=== PATIENT | male | born 1965 | race Caucasian/White ===

== ENCOUNTER 2023-02-07 09:40 | Outpatient (CLI) | payer OTHER ==
[2023-02-07 14:41] LABS: BASOPHILS # (AUTO) 0.1 10^3/uL (0.0-0.1); BASOPHILS % (AUTO) 0.6 %; EOSINOPHILS # (AUTO) 0.1 10^3/uL (0.0-0.7); EOSINOPHILS % (AUTO) 0.9 %; HCT - HEMATOCRIT 38.5 % (42.0-52.0); HGB - HEMOGLOBIN 12.6 g/dL (14.0-18.0); LYMPHOCYTES # (AUTO) 1.6 10^3/uL (1.5-3.5); MEAN CORPUSCULAR HEMOGLOBIN 29.2 pg (27.0-31.0); MEAN CORPUSCULAR HGB CONC 32.7 g/dL (32.0-36.0); MEAN CORPUSCULAR VOLUME 89.1 fL (80.0-94.0); MEAN PLATELET VOLUME 9.4 fL (7.4-11.4); MONOCYTES # (AUTO) 0.8 10^3/uL (0.0-1.0); MONOCYTES % (AUTO) 9.1 %; NEUTROPHILS # (AUTO) 6.5 10^3/uL (1.5-6.6); NEUTROPHILS % (AUTO) 71.1 %; PLT - PLATELET COUNT 330 10^3/uL (130-450); RED BLOOD COUNT 4.32 10^6/uL (4.70-6.10); RED CELL DISTRIBUTION WIDTH 12.8 % (12.0-15.0); WHITE BLOOD COUNT 9.1 x10^3/uL (4.8-10.8)
--- NOTE | 2023-02-07 15:17 | XRAY Report ---
PROCEDURE: Lumbar Spine 2 View INDICATIONS: CHRONIC BACK PAIN TECHNIQUE: 2 views of the lumbar spine were acquired. COMPARISON: None. FINDINGS: Bones: 5 [id number] vertebrae are present. There is 4 mm anterolisthesis of L4 on L5. There is also 6 mm retrolisthesis of L1 on L2 and L2 on L3. Mild degenerative endplate changes are noted thro ughout lumbar spine. No vertebral body compression fractures. No suspicious bony lesions. Soft tissues: Overlying bowel gas pattern is normal. No suspicious soft tissue calcifications. IMPRESSION: Mild degenerative disc disease throughout lumbar spine. No acute compression fracture. L ikely degenerative spondylolisthesis at L1-2, L2-3 and L4-5 levels as above. Reviewed by: Fadi Altamirano MD on 02/07/2023 3:16 PM PDT Approved by: Fadi Altamirano MD on 02/07/2023 3:16 PM PDT Station ID: [id number]
--- NOTE | 2023-02-07 15:18 | XRAY Report ---
PROCEDURE: Thoracic Spine 3 View INDICATIONS: CHRONIC BACK PAIN TECHNIQUE: 3 views of the thoracic spine were acquired. COMPARISON: None. FINDINGS: Bones: No fractures or dislocations. There is mild kyphosis with apex at T5-6 level. Degenerative e ndplate changes and loss of disc height throughout mid to lower thoracic spine is seen. No suspicious bony lesions. 12 pairs of ribs are noted, and appear intact where visualized. Soft tissues: No paravertebral stripe thickening. IMPRESSION: No acute fracture or dislocation. Mild kyphosis and mild degenerative disc disease in mid to lower th oracic spine as above. Reviewed by: Fadi Altamirano MD on 02/07/2023 3:17 PM PDT Approved by: Fadi Altamirano MD on 02/07/2023 3:17 PM PDT Station ID: [id number]
[2023-02-07 15:20] LABS: ALBUMIN 4.3 g/dL (3.2-5.5); ALBUMIN/GLOBULIN RATIO 1.1 (1.0-2.2); ALKALINE PHOSPHATASE 76 IU/L (42-121); ALT ALANINE AMINOTRANSFERASE 18 IU/L (10-60); AST ASPARTATE AMINOTRANSFERASE 25 IU/L (10-42); BILIRUBIN,TOTAL 0.9 mg/dL (0.2-1.0); BUN - BLOOD UREA NITROGEN 14 mg/dL (6-20); CALCIUM 9.4 mg/dL (8.5-10.3); CARBON DIOXIDE - CO2 28 mmol/L (21-32); CHLORIDE 99 mmol/L (101-111); CHOL/HDL RATIO 2.6 (<5.0); CHOLESTEROL 193 mg/dL; CREATININE 0.9 mg/dL (0.6-1.2); GFR - MDRD 87 (>89); GLUCOSE 96 mg/dL (70-100); HDL CHOLESTEROL 74 mg/dL; LDL CHOLESTEROL,CALCULATED 105 mg/dL; LDL/HDL RATIO 1.4 (<3.6); POTASSIUM 4.2 mmol/L (3.5-5.0); SODIUM 132 mmol/L (135-145); TOTAL PROTEIN 8.2 g/dL (6.7-8.2); TRIGLYCERIDES 68 mg/dL; VLDL CHOLESTEROL 14 mg/dL
== END 2023-02-07 09:41 | disposition home or self-care (01) ==
LOC: DI.S 09:40
PROVIDERS: ATTEND Nurse Practitioner Acute Care
DX: M54.9 Dorsalgia, unspecified (principal); G89.29 Other chronic pain; M51.34 Other intervertebral disc degeneration, thoracic region; M51.36 Other intervertebral disc degeneration, lumbar region; M43.16 Spondylolisthesis, lumbar region; Z12.5 Encounter for screening for malignant neoplasm of prostate; Z13.228 Encounter for screening for other metabolic disorders; Z13.220 Encounter for screening for lipoid disorders; Z13.29 Encounter for screening for other suspected endocrine disorder; Z13.0 Encounter for screening for diseases of the blood and blood-forming organs and certain disorders involving the immune mechanism
CPT/HCPCS: 36415; 80053; 80061; 83721; 84153; 84443; 85025

== ENCOUNTER 2023-02-12 08:51 | Outpatient (CLI) | payer OTHER ==
[2023-02-12 14:41] LABS: ABSOLUTE RETICS # AUTO 0.049 10^6/uL (0.020-0.110); RED BLOOD COUNT 4.22 10^6/uL (4.70-6.10); RETICULOCYTE COUNT % (AUTO) 1.15 % (0.5-2.3)
[2023-02-12 15:54] LABS: FERRITIN 50.1 ng/mL (23.9-336.2)
[2023-02-12 16:01] LABS: % IRON SATURATION 24 % (20-50); IRON 80 ug/dL (45-182); TOTAL IRON BINDING CAPACITY 328 ug/dL (250-450); TRANSFERRIN 234 mg/dL (180-329)
== END 2023-02-12 08:52 | disposition home or self-care (01) ==
LOC: LAB.S 08:51
PROVIDERS: ATTEND Nurse Practitioner Acute Care
DX: D64.9 Anemia, unspecified (principal)
CPT/HCPCS: 36415; 82607; 82728; 82746; 83540; 84466; 85045

== ENCOUNTER 2023-04-25 08:00 | Outpatient (CLI) | payer OTHER ==
[2023-04-25 20:01] LABS: FECAL OCCULT BLOOD (FIT) NEGATIVE (NEGATIVE)
== END 2023-04-25 23:59 | disposition home or self-care (01) ==
LOC: LAB 08:00
PROVIDERS: ATTEND Nurse Practitioner Acute Care
DX: D64.9 Anemia, unspecified (principal)
CPT/HCPCS: 82274

== ENCOUNTER 2023-11-10 20:49 | Emergency (ER) | payer OTHER ==
[2023-11-10 21:07] VITALS: BP 141/80; O2SAT 100
--- NOTE | 2023-11-10 22:17 | ED Physician Documentation ---
PD HPI BACK PAIN - Stated complaint Stated Complaint: FALL - Chief complaint Chief Complaint: Trauma Ch/Bk - History obtained from History obtained from: Patient - Additional information Additional information: Patient is a 58-year-old male with no significant past medical history presenting for evaluation of back pain after slip and fall. Patient states he was going upstairs with pizza and water in his hands and needed to go back downstairs and slipped as he had socks on. He struck his back against a stair and believes he slid down approximately 4 steps. No head injury. Denies LOC. Does not take a blood thinner. He also reports hitting his elbows but pain is primarily to the low back. He did take anti-inflammatories prior to arrival. No radiation to the pain. Denies saddle anesthesia. No numbness or weakness in legs. Denies incontinence. Review of Systems Constitutional: denies: Fever Cardiac: denies: Chest pain / pressure Respiratory: denies: Dyspnea GI: denies: Abdominal Pain Musculoskeletal: reports: Back pain PD PAST MEDICAL HISTORY - Past Medical History Past Medical History: Yes Psych: Depression - Past Surgical History Past Surgical History: Yes - Present Medications Home Medications: Ambulatory Orders Medication Instructions Recorded Confirmed buPROPion [Wellbutrin Xl] 150 mg PO DAILY 06/18/23 11/10/23 busPIRone [Buspar] 10 mg PO TID 06/18/23 11/10/23 Cyclobenzaprine [Flexeril] 10 mg PO TID PRN #20 tablet 11/10/23 Lidocaine [Lidoderm] 1 each TP DAILY PRN #10 patch 11/10/23 - Allergies Allergies/Adverse Reactions: Allergies Allergy/AdvReac Type Severity Reaction Status Date / Time No Known Drug Allergies Allergy Verified 11/10/23 20:56 - Social History Does the pt smoke?: No Smoking Status: Former smoker Does the pt drink ETOH?: Yes Does the pt have substance abuse?: No - Immunizations Immunizations are current?: Yes PD ED PE NORMAL - General General: Alert and oriented X 3, No acute distress, Well developed/nourished - HEENT HEENT: Atraumatic, Moist mucous membranes, Pharynx benign - Neck Neck: Supple, no meningeal sign, No bony TTP - Cardiac Cardiac: RRR, Strong equal pulses - Respiratory Respiratory: No respiratory distress, Clear bilaterally - Abdomen Abdomen: Normal bowel sounds, Soft, Non tender, Non distended - Back Back: No spinal TTP - Derm Derm: Warm and dry - Extremities Extremities: Other (Small abrasion to right elbow, normal range of motion of both elbows) - Neuro Neuro: Alert and oriented X 3, Normal speech PD ED PE EXPANDED - Back Back visual: 1 - abrasion Results - Vitals Vitals: Vital Signs - 24 hr 11/10/23 20:56 Temperature 36.3 C L Heart Rate 68 Respiratory 16 Rate Blood Pressure 141/80 H O2 Saturation 100 Oxygen O2 Source Room air PD Medical Decision Making - ED course Complexity details: reviewed results, d/w patient, d/w family ED course: Patient is a 58-year-old male presenting for evaluation of back pain after a slip and fall on stairs. No head injury. He is ambulatory. Normal neuroexam. Distal pulses intact. Does have an abrasion to the back area. No significant midline tenderness. X-ray of the lumbar spine was obtained and reviewed which is negative for fracture. Patient agreeable to trial of anti-inflammatories, lidocaine patches and muscle relaxers. Understands need for close follow-up if symptoms or not improving. Patient also made aware of usual return precautions. Departure - Departure Disposition: 01 Home, Self Care Clinical Impression: Fall from stairs, Lower back injury Condition: Stable Instructions: ED Low Back Pain Injury, ED Contusion Back Follow-Up: Pat Brown ARNP [Primary Care Provider] - Prescriptions: Cyclobenzaprine [Flexeril] 10 mg PO TID PRN #20 tablet PRN Reason: Spasms Lidocaine [Lidoderm] 1 each TP DAILY PRN #10 patch PRN Reason: Moderate Pain (Level 4-6) Comments: Your formal x-ray read of your lower back is pending. I will notify you if there are any concerning findings from the radiologist. In the meanwhile I would continue with anti-inflammatory such as ibuprofen or acetaminophen, lidocaine patches, muscle relaxers as needed for any spasms. I would also recommend follow-up with your primary care provider if your symptoms or not improving. I have sent a prescription for the muscle relaxers and lidocaine patches to [facility] in [place]. Return to the ER with any worsening symptoms. Forms: PCP List Discharge Date/Time: 11/10/23 23:29
[2023-11-10] MEDS: LIDOCAINE PATCH 5% TOP STA (22:34)
--- NOTE | 2023-11-10 23:21 | XRAY Report ---
PROCEDURE: Lumbar Spine 2-3V INDICATIONS: fall on stairs TECHNIQUE: 3 views of the lumbar spine were acquired. COMPARISON: 02/07/2023. FINDINGS: Bones: 5 [id number] vertebrae are present. Grade 1 anterolisthesis of L4 on L5. Mild disc heigh t loss at all levels, most prominent at L2-3. Facet arthrosis L4-S1. Grade 1 retrolisthesis of L1 on L2 and L2 on L3. Soft tissues: Overlying bowel gas pattern is normal. No suspicious soft tissue calcifications. IMPRESSION: Mild, multilevel degenerative disc disease and lower lumbar facet arthrosis. This has minimally progr essed since 2022. Reviewed by: Erik Singh MD on 11/10/2023 11:20 PM PDT Approved by: Erik Singh MD on 11/10/2023 11:20 PM PDT Station ID: [id number]
[2023-11-10] MEDS: CYCLOBENZAPRINE 10 MG Prepack 2 PO PRN (23:23)
== END 2023-11-10 23:29 | disposition home or self-care (01) ==
LOC: ED 20:49
DX: S30.810A Abrasion of lower back and pelvis, initial encounter (principal); S39.92XA Unspecified injury of lower back, initial encounter; S50.311A Abrasion of right elbow, initial encounter; W10.8XXA Fall (on) (from) other stairs and steps, initial encounter; Y93.89 Activity, other specified; Z87.891 Personal history of nicotine dependence
CPT/HCPCS: 72100; 99283; A9270